=== PATIENT | male | born 1975 | race Caucasian/White ===

== ENCOUNTER 2017-01-06 17:01 | Emergency (ER) | payer OTHER ==
[2017-01-06 17:12] VITALS: BP 139/96; PULSE 77; TEMP 98.7; BMI 33.7
--- NOTE | 2017-01-06 17:22 | PDOC ---
History of Present Illness - General Exam Limitations: No Limitations <Lashonda Woodard - Last Filed: 01/06/17 17:35> - History of Present Illness Initial Comments: 01/06/17 17:31 The patient is a 41 year old male, with a significant past medical history of left elbow arthroscopy in September 2016 s/p fall in 2010 to bilateral elbows, who presents to the emergency department with progressive pain and mild swelling to his right elbow and right forearm since his left elbow surgery in September 2016 s/p mechanical fall in 2010. He reports taking Advil this morning with little to no pain relief. He also reports having an injection to his right elbow ( symptomatic elbow) shortly after his left elbow arthroscopy. He states the injection helped with his pain until about a month ago. He reports pain today that is exacerbated with extension of his right elbow. He denies numbness. He states he has called his orthopedic surgeon, Dr. Wilson at [facility], and scheduled an appointment for a later date. He denies chest pain, shortness of breath, headache and dizziness. He denies fever, chills, nausea, vomit, diarrhea and constipation. He denies dysuria, frequency, urgency and hematuria. Allergies: NKDA Past surgical history: left elbow arthroscopy (2010) <Eliza Charlton - Last Filed: 01/06/17 17:39> - General Chief Complaint: Pain Stated Complaint: RT ELBOW PAIN Past History - Past Medical History GI Disorders: Yes (ACID REFLUX) - Surgical History Orthopedic Surgery: Yes - Psycho/Social/Smoking Cessation Hx Anxiety: No Suicidal Ideation: No Smoking Status: No Smoking History: Never smoked Have you smoked in the past 12 months: No Number of Cigarettes Smoked Daily: 0 Information on smoking cessation initiated: No Hx Alcohol Use: No Drug/Substance Use Hx: No Substance Use Type: None Hx Substance Use Treatment: No <Lashonda Woodard - Last Filed: 01/06/17 17:35> <Eliza Charlton - Last Filed: 01/06/17 17:39> - Past Medical History Allergies/Adverse Reactions: Allergies Allergy/AdvReac Type Severity Reaction Status Date / Time prednisone Allergy Verified 01/06/17 17:02 Home Medications: Ambulatory Orders Ibuprofen [Motrin -] 600 mg PO TID PRN #90 tablet MDD 3 01/06/17 Omeprazole 10 mg PO DAILY 01/06/17 Review of Systems - Review of Systems Able to Perform ROS?: Yes Comments:: 01/06/17 17:32 GENERAL/CONSTITUTIONAL: No fever or chills. No weakness. HEAD, EYES, EARS, NOSE AND THROAT: No change in vision. No ear pain or discharge. No sore throat. CARDIOVASCULAR: No chest pain or shortness of breath. RESPIRATORY: No cough, wheezing, or hemoptysis. GASTROINTESTINAL: No nausea, vomiting, diarrhea or constipation. GENITOURINARY: No dysuria, frequency, or change in urination. MUSCULOSKELETAL: (+) pain and swelling to right elbow. No neck or back pain. SKIN: No rash NEUROLOGIC: No headache, vertigo, loss of consciousness, or change in strength/ sensation. ENDOCRINE: No increased thirst. No abnormal weight change. HEMATOLOGIC/LYMPHATIC: No anemia, easy bleeding, or history of blood clots. ALLERGIC/IMMUNOLOGIC: No hives or skin allergy. <Eliza Charlton - Last Filed: 01/06/17 17:39> *Physical Exam - Vital Signs Last Vital Signs Temp Pulse Resp BP Pulse Ox 98.7 F 77 20 139/96 97 01/06/17 17:02 01/06/17 17:02 01/06/17 17:02 01/06/17 17:02 01/06/17 17:02 <Lashonda Woodard - Last Filed: 01/06/17 17:35> - Vital Signs Last Vital Signs Temp Pulse Resp BP Pulse Ox 98.7 F 77 20 139/96 97 01/06/17 17:02 01/06/17 17:02 01/06/17 17:02 01/06/17 17:02 01/06/17 17:02 - Physical Exam Comments: 01/06/17 17:33 GENERAL: Awake, alert, and fully oriented, in no acute distress HEAD: No signs of trauma EYES: PERRLA, EOMI, sclera anicteric, conjunctiva clear ENT: Auricles normal inspection, hearing grossly normal, nares patent, oropharynx clear without exudates. Moist mucosa NECK: Normal ROM, supple, no lymphadenopathy, JVD, or masses LUNGS: Breath sounds equal, clear to auscultation bilaterally. No wheezes, and no crackles HEART: Regular rate and rhythm, normal S1 and S2, no murmurs, rubs or gallops ABDOMEN: Soft, nontender, normoactive bowel sounds. No guarding, no rebound. No masses EXTREMITIES: (+) Pain with supination but no effusion or erythema or warmth. Radial, median, and ulnar nerves intact. Full ROM of shoulders. Normal range of motion, no edema. No clubbing or cyanosis. No cords, erythema, or tenderness NEUROLOGICAL: Cranial nerves II through XII grossly intact. Normal speech, normal gait SKIN: Warm, Dry, normal turgor, no rashes or lesions noted. <Eliza Charlton - Last Filed: 01/06/17 17:39> Medical Decision Making - Medical Decision Making 01/06/17 17:20 41 yo M with h/o rigth arm pain prior injury many years ago. had surgery on left arm. today c/o pain right elbow. started one month ago. here today was hoping he could get an injection in his elbow. no f/c no swelling. plan ortho pedic followup. nsaids. 01/06/17 17:27 pt will follow up with Dr. France, orthopedic who performed surgery on left elbow. given rx for motrin 600mg, q8, hrs ortho followup <Lashonda Woodard - Last Filed: 01/06/17 17:35> *DC/Admit/Observation/Transfer - Discharge Dispostion Admit: No <Lashonda Woodard - Last Filed: 01/06/17 17:35> - Attestations Scribe Attestion: 01/06/17 17:33 Documentation prepared by Eliza Charlton, acting as clinical laboratory medical director for Lashonda Woodard MD <Eliza Charlton - Last Filed: 01/06/17 17:39> Diagnosis at time of Disposition: Elbow tendonitis - Prescriptions Prescriptions: Ibuprofen [Motrin -] 600 mg PO TID PRN #90 tablet MDD 3 PRN Reason: Pain - Referrals Referrals: Behzad Patel MD [Staff Physician] - - Patient Instructions Printed Discharge Instructions: DI for Lateral Epicondylitis (Tennis Elbow) Additional Instructions: you can take ibuprofen 600 mg every 8 hours as needed for pain. return for any weakness numbness or tingling. follow up wtih your orthopedics. you can also follow up with Dr. Patel ( orthopedics ) see referral for office information. call to schedule.
[2017-01-06] MEDS ORDERED: KETOROLAC TROMETHAMINE 30 MG/1 ML VIAL IM ONE (17:26)
[2017-01-06] MEDS ORDERED: KETOROLAC TROMETHAMINE 30 MG/1 ML VIAL ONE (17:52)
== END 2017-01-06 18:00 | disposition home or self-care (01) ==
LOC: FER 17:01
PROC: 3E0233Z Introduction of Anti-inflammatory into Muscle, Percutaneous Approach (ICD-10-PCS; principal; 2017-01-06)
DX: M77.9 Enthesopathy, unspecified (principal)
CPT/HCPCS: 99282-25

== ENCOUNTER 2017-05-14 18:21 | Emergency (ER) | payer BC, OTHER ==
[2017-05-14 18:28] VITALS: BP 126/86; PULSE 90; TEMP 97.8; BMI 33.0
--- NOTE | 2017-05-14 19:03 | PDOC ---
History of Present Illness - General History Source: Patient Exam Limitations: No Limitations - History of Present Illness Initial Comments: 05/14/17 20:00 The patient is a 42 year old male with past medical history of fatty liver and GERD who presents to the ED with 2 days of sore throat. He reports mild congestion as well and denies cough. States he feels warm, but denies fever. He states he has not taken anything for his symptoms. 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 Denies nausea, vomiting , diarrhea. Denies SOB or CP. Denies urinary symptoms. PAST MEDICAL HISTORY: no significant history PAST SURGICAL HISTORY: no significant history FAMILY HISTORY: no pertinent history SOCIAL HISTORY: Pt lives with family and is employed. MEDICATIONS: reviewed ALLERGIES: As per nursing notes ROS General: Present: subjective fever No chills no weakness, no weight loss HEENT: Present: sore throat No change in vision. No ear pain CardioVascular: No chest pain or shortness of breath Respiratory:No cough, or wheezing. Gastrointestinal: no nausea, vomiting, diarrhea or constipation, No rectal bleeding Genitourinary: No dysuria, hematuria, or frequency Musculoskeletal: No joint or muscle pain or swelling Neurologic: No headache, vertigo, dizziness or loss of consciousness Psychiatric: nor depression Skin: No rashes or easy bruising Endocrine: no increased thirst or abnormal weight change Allergic: no skin or latex allergy All other systems reviewed and normal GENERAL: The patient is awake, alert, and fully oriented, in no acute distress. HEAD: Normal with no signs of trauma. EYES: Pupils equal, round and reactive to light, extraocular movements intact, sclera anicteric, conjunctiva clear. THROAT: Mild erythema to posterior oropharynx. No exudates or lymphadenopathy. Tonsils are normal. EXTREMITIES: Normal range of motion, no edema. NEUROLOGICAL: Normal speech, normal gait. PSYCH: Normal mood, normal affect. SKIN: Warm, Dry, normal turgor, no rashes or lesions noted <Margarita Watkins - Last Filed: 05/14/17 20:00> - General History Source: Patient Exam Limitations: No Limitations - History of Present Illness Initial Comments: A portion of this note was documented by scribe services under my direction. I have reviewed the details of the note, within reason, and agree with the documentation. The case summary and management plan written by me. 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 Patient comes in complaining of sore throat and viral upper respiratory tract symptoms. Patient has no fever, there is no exudate there is no lymphadenopathy and no suspicion for acute strep pharyngitis. Patient was reassured that his symptoms are viral and told to take Tylenol or Motrin and was discharged <Basilia Freire I - Last Filed: 05/14/17 20:27> - General Chief Complaint: Cold Symptoms Stated Complaint: FLU LIKE SYMPTOMS Time Seen by Provider: 05/14/17 19:02 Past History <Margarita Watkins - Last Filed: 05/14/17 20:00> - Past Medical History COPD: No GI Disorders: Yes (ACID REFLUX) - Surgical History Abdominal Surgery: (HERNIA REPAIR) Orthopedic Surgery: Yes - Suicide/Smoking/Psychosocial Hx Smoking Status: No Smoking History: Never smoked Have you smoked in the past 12 months: No Number of Cigarettes Smoked Daily: 0 Hx Alcohol Use: No Drug/Substance Use Hx: No Substance Use Type: None Hx Substance Use Treatment: No <Basilia Freire I - Last Filed: 05/14/17 20:27> - Past Medical History Allergies/Adverse Reactions: Allergies Allergy/AdvReac Type Severity Reaction Status Date / Time prednisone Allergy Verified 05/14/17 18:22 Home Medications: Ambulatory Orders NK [No Known Home Medication] 05/14/17 Review of Systems - Review of Systems Able to Perform ROS?: Yes All Other Systems: Reviewed and Negative <Margarita Watkins - Last Filed: 05/14/17 20:00> *Physical Exam - Vital Signs Last Vital Signs Temp Pulse Resp BP Pulse Ox 97.8 F 90 18 126/86 96 05/14/17 18:22 05/14/17 18:22 05/14/17 18:22 05/14/17 18:22 05/14/17 18:22 <Margarita Watkins - Last Filed: 05/14/17 20:00> - Vital Signs Last Vital Signs Temp Pulse Resp BP Pulse Ox 97.8 F 90 18 126/86 96 05/14/17 18:22 05/14/17 18:22 05/14/17 18:22 05/14/17 18:22 05/14/17 18:22 <Basilia Freire I - Last Filed: 05/14/17 20:27> *DC/Admit/Observation/Transfer - Attestations Scribe Attestion: 05/14/17 20:03 Documentation prepared by Margarita Watkins, acting as bilingual medical assistant for Basilia Freire MD. <Margarita Watkins - Last Filed: 05/14/17 20:00> - Discharge Dispostion Admit: No <Basilia Freire I - Last Filed: 05/14/17 20:27> Diagnosis at time of Disposition: Viral upper respiratory illness - Discharge Dispostion Disposition: HOME Condition at time of disposition: Stable - Patient Instructions Printed Discharge Instructions: DI for Viral Upper Respiratory Infection -- Adult Additional Instructions: Tylenol or Motrin as needed every 4-6 hours for pain or fevers. Return to the emergency department immediately with ANY new, persistent or worsening symptoms. Continue any medications as previously prescribed by your physician. You should follow up with your primary doctor as soon as possible regarding today's emergency department visit. . Please make sure your doctor reviews the results of your emergency evaluation. Thank you for coming to the Emergency Department today for your care. It was a pleasure to see you today. Please note that your evaluation is INCOMPLETE until you follow-up with your doctor.
== END 2017-05-14 20:12 | disposition home or self-care (01) ==
LOC: FER 18:21
DX: J06.9 Acute upper respiratory infection, unspecified (principal); B97.89 Other viral agents as the cause of diseases classified elsewhere; K21.9 Gastro-esophageal reflux disease without esophagitis
CPT/HCPCS: 99281-25

== ENCOUNTER 2017-09-13 10:34 | Emergency (ER) | payer BC ==
[2017-09-13 10:39] VITALS: BP 122/88; PULSE 99; TEMP 98.9; BMI 33.0
[2017-09-13] MEDS ORDERED: IBUPROFEN 600 MG TABLET (FP) PO ONE ×2 (11:03→11:04)
--- NOTE | 2017-09-13 11:10 | PDOC ---
History of Present Illness - General Chief Complaint: Pain Stated Complaint: RT HAND, LEFT CALF PAIN History Source: Patient Exam Limitations: No Limitations - History of Present Illness Initial Comments: 09/13/17 11:04 42 yo male with h/o carpal tunnel here with complaints of worsening right arm pain. had done physical therapy previously, but not doing it recently. states he banged his right thumb while at work one month ago and pain has been worse since the. smilar to prior carpal tunnel. worse at night. does describe pain, throbbing and numbness. no erythem. no f/c. not wearing brace currently. pain mod. did not take anything for pain prior to arrival. also c/o left calf spasms. states has been happening for months. 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 no leg swelling. no h;/o pe or dvt. no color changes. states been trying to drink plenty of water to help but not working. notes calfs are most sore in the morning. Past History - Past Medical History Allergies/Adverse Reactions: Allergies Allergy/AdvReac Type Severity Reaction Status Date / Time prednisone Allergy Verified 09/13/17 10:35 Home Medications: Ambulatory Orders NK [No Known Home Medication] 05/14/17 COPD: No GI Disorders: Yes (ACID REFLUX) Other medical history: CARPAL TUNNEL SX - Surgical History Abdominal Surgery: Yes (HERNIA REPAIR) Orthopedic Surgery: Yes - Suicide/Smoking/Psychosocial Hx Smoking Status: No Smoking History: Never smoked Have you smoked in the past 12 months: No Number of Cigarettes Smoked Daily: 0 Hx Alcohol Use: (occasional) Drug/Substance Use Hx: No Substance Use Type: None Hx Substance Use Treatment: No Review of Systems - Review of Systems Constitutional: No: Chills, Diaphoresis, Fever HEENTM: No: Blurred Vision Respiratory: No: Orthopnea, Shortness of Breath Cardiac (ROS): No: Chest Pain, Edema Musculoskeletal: Yes: Joint Pain Integumentary: No: Bruising, Change in Color Neurological: Yes: Numbness, Other (right hand numnbess m. nerve distribution) All Other Systems: Reviewed and Negative *Physical Exam - Vital Signs Last Vital Signs Temp Pulse Resp BP Pulse Ox 98.9 F 99 H 18 122/88 97 09/13/17 10:35 09/13/17 10:35 09/13/17 10:35 09/13/17 10:35 09/13/17 10:35 - Physical Exam General Appearance: Yes: Appropriately Dressed Respiratory/Chest: positive: Lungs Clear, Normal Breath Sounds Cardiovascular: positive: Regular Rhythm, Regular Rate, S1, S2 Gastrointestinal/Abdominal: positive: Flat, Soft. negative: Tender Extremity: positive: Other (left calf soft, no calf tenderness. no edema or swelling. knee fROM. ankle FROM. right hand no visible erythem or edema. 2 + rad / uln pulses. sensation intact. ) Integumentary: positive: Normal Color, Dry, Warm Neurologic: positive: Fully Oriented, Alert, Normal Mood/Affect, Motor Strength 09/05 ED Treatment Course - RADIOLOGY Radiology Studies Ordered: Category Date Time Status HAND- RIGHT [RAD] Stat Radiology 09/13/17 11:04 Ordered Medical Decision Making - Medical Decision Making 09/13/17 11:09 pt with sxs of carpal tunnel. recommend brace motrin and fu with hand. xray due to recent injury r/o bony injury. muscle spasm. recommend hydration motrin stretching and electrolyte replacement. 09/13/17 11:49 xray neg dc home *DC/Admit/Observation/Transfer Diagnosis at time of Disposition: Carpal tunnel syndrome of right wrist, Muscle spasm - Discharge Dispostion Condition at time of disposition: Stable - Referrals Referrals: Drew Hanley MD [Primary Care Provider] - Antonio Pitt MD [Staff Physician] - - Patient Instructions Printed Discharge Instructions: Nocturnal Leg Cramps, Carpal Tunnel Syndrome Additional Instructions: you should wear your wrist splint including during the night. take ibuprofen 400 mg with food every 8 hrs only as needed for pain. you should stay hydrated. stretch before bed time of your calves. follow up with dR. Pitt see referral information and call to schedule for your carpal tunnel. - Post Discharge Activity
== END 2017-09-13 11:58 | disposition home or self-care (01) ==
LOC: FER 10:34
DX: M62.838 Other muscle spasm (principal); G56.01 Carpal tunnel syndrome, right upper limb
CPT/HCPCS: 73130-TC-RT-FY; 99283-25

== ENCOUNTER 2017-11-14 05:37 | Emergency (ER) | payer BC ==
[2017-11-14] MEDS ORDERED: KETOROLAC TROMETHAMINE 30 MG/1 ML VIAL IM ONE (05:45)
[2017-11-14] MEDS ORDERED: METHOCARBAMOL 500 MG TABLET PO ONE (05:45)
[2017-11-14 05:49] VITALS: BP 108/76; PULSE 93; BMI 33.0
[2017-11-14] MEDS ORDERED: METHOCARBAMOL 500 MG TABLET ONE (05:51)
[2017-11-14] MEDS ORDERED: KETOROLAC TROMETHAMINE 30 MG/1 ML VIAL ONE (05:51)
--- NOTE | 2017-11-14 05:51 | PDOC ---
History of Present Illness - General Stated Complaint: BACK PAIN Time Seen by Provider: 11/14/17 05:42 History Source: Patient Exam Limitations: No Limitations - History of Present Illness Initial Comments: 11/14/17 05:45 CHIEF COMPLAINT: Lower back pain after moving heavy equipment HISTORY OF PRESENT ILLNESS: This is a 42-year-old male without significant past medical history presents to the emergency department with left lower back pain radiating down the back of his left leg. Patient states he was moving heavy equipment at his job as night when he felt pain. He denies any incontinence of bladder or bowel, urinary retention, saddle anesthesia or foot drop. REVIEW OF SYSTEMS: GENERAL: Afebrile, denies any weakness RESPIRATORY: No cough, wheezing, or hemoptysis. CARDIAC: No chest pain or shortness of breath MUSCULOSKELETAL: Pain to left lower back. No point tenderness. SKIN : No erythema, no bruising, no deformity. GI/: Denies any abdominal pain, no urinary difficulty, incontinence or urinary retention. RECTAL: Denies any difficulty this A.m. NEUROLOGICAL: Denies any numbness or tingling. No neurosensory deficits. PHYSICAL EXAM: GENERAL: The patient is awake, alert, and fully oriented, in no acute distress. RESPIRATORY: Lungs clear bilaterally, no rhonchi wheezes or crackles CARDIAC: S1-S2 audible, no murmur rub or gallop MUSCULOSKELETAL: Pain to left lower back, nonradiating, no tingling or sensory deficit. Less than 2 second cap refill, +2 pedal pulses. GI/: Abdomen soft, nontender, nondistended. No rebound tenderness. No masses palpable. MUSCULOSKELETAL: No spinal point tenderness. Normal reflexive and no deficits to sensation or strength. RECTAL: Deferred patient with no neurological findings SKIN: Warm, Dry, normal turgor, no erythema, no edema no bruising. Past History - Past Medical History Allergies/Adverse Reactions: Allergies Allergy/AdvReac Type Severity Reaction Status Date / Time prednisone Allergy Verified 11/14/17 05:45 Home Medications: Ambulatory Orders Omeprazole 20 mg PO DAILY PRN 11/14/17 COPD: No GI Disorders: Yes (ACID REFLUX) - Surgical History Abdominal Surgery: Yes (HERNIA REPAIR) Orthopedic Surgery: Yes - Suicide/Smoking/Psychosocial Hx Smoking Status: No Smoking History: Never smoked Have you smoked in the past 12 months: No Number of Cigarettes Smoked Daily: 0 Hx Alcohol Use: (occasional) Drug/Substance Use Hx: No Substance Use Type: None Hx Substance Use Treatment: No Medical Decision Making - Medical Decision Making 11/14/17 05:46 A/P: 42-year-old male with left lower back pain radiating down his left leg status post heavy lifting exudate No palpable muscle spasms Full sensation noted to bilateral lower extremities Able form straight leg raises without difficulty No neurologic deficits Toradol 30 mg IM now Robaxin 1 g orally now Reassess 11/14/17 06:33 Pain is starting to improve after receiving medications. I will discharge the patient home to follow-up with his primary doctor. *DC/Admit/Observation/Transfer Diagnosis at time of Disposition: Low back pain Qualifiers: Chronicity: acute Back pain laterality: left Sciatica presence: with sciatica Sciatica laterality: sciatica of left side Qualified Code(s): M54.42 - Lumbago with sciatica, left side - Discharge Dispostion Disposition: HOME Condition at time of disposition: Fair Decision to Admit order: No - Referrals Referrals: Drew Hanley MD [Primary Care Provider] - - Patient Instructions Additional Instructions: Take Aleve as needed for pain. Follow manufacturers instructions for appropriate dosage. Warm moist heat applied to your back may help alleviate pain. Return to emergency department for worsening pain or any other concerns. Thank you very much for choosing us to provide your emergent healthcare needs. - Post Discharge Activity Forms/Work/School Notes: Back to Work
--- NOTE | 2017-11-14 05:56 | PDOC ---
*Physical Exam - Vital Signs Last Vital Signs Temp Pulse Resp BP Pulse Ox 93 H 18 108/76 99 11/14/17 05:46 11/14/17 05:46 11/14/17 05:46 11/14/17 05:46 ED Treatment Course - Medications Given in the ED: ED Medications Discontinued Medications Generic Name Dose Route Start Last Admin Trade Name Araseli PRN Reason Stop Dose Admin Ketorolac Tromethamine 30 mg 11/14/17 05:45 11/14/17 05:55 Toradol Injection - IM 11/14/17 05:46 30 mg ONCE ONE Administration Methocarbamol 1,000 mg 11/14/17 05:45 11/14/17 05:55 Robaxin - PO 11/14/17 05:46 1,000 mg ONCE ONE Administration Medical Decision Making - Medical Decision Making 11/14/17 05:56 Pt seen by Midlevel Provider under my direct supervision I agree with plan as outlined by Midlevel Provider *DC/Admit/Observation/Transfer Diagnosis at time of Disposition: Low back pain Qualifiers: Chronicity: acute Back pain laterality: left Sciatica presence: with sciatica Sciatica laterality: sciatica of left side Qualified Code(s): M54.42 - Lumbago with sciatica, left side - Discharge Dispostion Disposition: HOME Condition at time of disposition: Fair - Referrals Referrals: Drew Hanley MD [Primary Care Provider] - - Patient Instructions Printed Discharge Instructions: DI for Low Back Pain Additional Instructions: Take Aleve as needed for pain. Follow manufacturers instructions for appropriate dosage. Warm moist heat applied to your back may help alleviate pain. Return to emergency department for worsening pain or any other concerns. Thank you very much for choosing us to provide your emergent healthcare needs. - Post Discharge Activity Forms/Work/School Notes: Back to Work
== END 2017-11-14 06:47 | disposition home or self-care (01) ==
LOC: JER 05:37
PROC: 3E0233Z Introduction of Anti-inflammatory into Muscle, Percutaneous Approach (ICD-10-PCS; principal; 2017-11-14)
DX: M54.42 Lumbago with sciatica, left side (principal); X50.0XXA Overexertion from strenuous movement or load, initial encounter; Y93.89 Activity, other specified; Y92.238 Other place in hospital as the place of occurrence of the external cause; Y99.0 Civilian activity done for income or pay
CPT/HCPCS: 99281-25

== ENCOUNTER 2018-07-04 17:14 | Emergency (ER) | payer BC, OTHER ==
[2018-07-04 17:29] VITALS: BP 135/95; PULSE 100; TEMP 97.3; BMI 34.4
--- NOTE | 2018-07-04 17:48 | PDOC ---
History of Present Illness - General Chief Complaint: Headache Stated Complaint: HEADACHE Time Seen by Provider: 07/04/18 17:25 - History of Present Illness Initial Comments: 07/04/18 17:55 Chief complaint: "I think I have a sinus infection" History of present illness: URI symptoms, headache intermittent for 2 weeks. Taking DayQuil without significant relief. Did not see his doctor. History of sinus infections Review of systems: Subjective fever or chills but did not take his temperature. No sore throat or earache. No cough. No visual or focal neurologic symptoms, unsteadiness of gait. No chest pain, shortness of breath, abdominal pain, nausea , vomiting, diarrhea, visual or focal neurologic symptoms, unsteadiness of gait Past medical history: Patient is healthy, no active medical or surgical problems. Has been working and performing his usual activities without disruption Social history: Denies tobacco alcohol or nonprescription drugs. Fully active and without disability Family history: Reviewed and noncontributory including early coronary artery disease, respiratory diseases, metabolic disease including diabetes, and cancer Physical exam: Alert and oriented well-developed well-nourished no acute distress cheerful and cooperative. There is no respiratory distress and the patient does not appear to be in significant distress due to headache Afebrile, vital signs normal PERRLA 4 mm, fundi benign with sharp disc margins and good central venous pulsations. Mild nasal congestion. Ears and throat clear Neck supple without bruit mass or nodes Chest clear with full breath sounds throughout bilaterally. No wheezes rales or rhonchi CV S1 and S2 normal without murmur rub or gallop pulses full and symmetric no JVD or edema no bruits Abdomen benign Neurological C2 to 12 intact. Strength full and symmetric. No focal sensory or motor deficits. Gait stable and unimpaired. Cerebellum intact Skin clear, no rash, adequate turgor and wet mucous membranes Extremities no CCE Impression: Because of the duration of the illness, possible sinusitis, though symptoms are mild. Headache may be due to to sinus congestion. No sign of significant neurological disease or impairment. Plan: Decongestant, antibiotic, and Motrin. Rest and fluids. Recheck 2-3 days if symptoms persist. His symptoms worsen, return to ER. Fully ambulatory and in no significant distress at discharge. Past History - Past Medical History Allergies/Adverse Reactions: Allergies Allergy/AdvReac Type Severity Reaction Status Date / Time prednisone Allergy Verified 12/23/17 22:15 Home Medications: Ambulatory Orders Amoxicillin - [Amoxicillin 500mg Capsule -] 500 mg PO TID #21 capsule 07/04/18 Fexofenadine/Pseudoephedrine [Kacey-D 24 Hour Tablet] 1 each PO DAILY #10 tab.er.24h 07/04/18 Ibuprofen 800 mg PO TID PRN #15 tablet 07/04/18 COPD: No GI Disorders: Yes (ACID REFLUX) - Surgical History Abdominal Surgery: Yes (HERNIA REPAIR) Orthopedic Surgery: Yes - Suicide/Smoking/Psychosocial Hx Smoking Status: No Smoking History: Never smoked Have you smoked in the past 12 months: No Number of Cigarettes Smoked Daily: 0 Information on smoking cessation initiated: No Hx Alcohol Use: No Drug/Substance Use Hx: No Substance Use Type: None Hx Substance Use Treatment: No *Physical Exam - Vital Signs Last Vital Signs Temp Pulse Resp BP Pulse Ox 97.3 F L 100 H 20 135/95 99 07/04/18 17:14 07/04/18 17:14 07/04/18 17:14 07/04/18 17:14 07/04/18 17:14 Moderate Sedation - Procedure Monitoring Vital Signs: Procedure Monitoring Vital Signs Temperature 97.3 F L 07/04/18 17:14 Pulse Rate 100 H 07/04/18 17:14 Respiratory Rate 20 07/04/18 17:14 Blood Pressure 135/95 07/04/18 17:14 O2 Sat by Pulse Oximetry (%) 99 07/04/18 17:14 *DC/Admit/Observation/Transfer Diagnosis at time of Disposition: Viral URI - Discharge Dispostion Disposition: HOME Condition at time of disposition: Stable Decision to Admit order: No - Prescriptions Prescriptions: Amoxicillin - [Amoxicillin 500mg Capsule -] 500 mg PO TID #21 capsule Fexofenadine/Pseudoephedrine [Kacey-D 24 Hour Tablet] 1 each PO DAILY #10 tab.er.24h Ibuprofen 800 mg PO TID PRN #15 tablet PRN Reason: Headache - Referrals - Patient Instructions Printed Discharge Instructions: DI for Viral Upper Respiratory Infection -- Adult - Post Discharge Activity Forms/Work/School Notes: Back to Work
== END 2018-07-04 18:06 | disposition home or self-care (01) ==
LOC: FER 17:14
DX: J06.9 Acute upper respiratory infection, unspecified (principal); K21.9 Gastro-esophageal reflux disease without esophagitis
CPT/HCPCS: 99281-25

== ENCOUNTER 2020-04-18 19:47 | Emergency (ER) | payer OTHER ==
[2020-04-18 19:58] VITALS: BP 144/95; PULSE 106; TEMP 98.6; BMI 33.0
[2020-04-18] MEDS ORDERED: KETOROLAC TROMETHAMINE 60 MG/2 ML VIAL IM ONE (20:06)
[2020-04-18] MEDS ORDERED: CYCLOBENZAPRINE HCL 10 MG TABLET (FP) PO ONE (20:06)
[2020-04-18] MEDS ORDERED: KETOROLAC TROMETHAMINE 60 MG/2 ML VIAL ONE (20:31)
[2020-04-18] MEDS ORDERED: CYCLOBENZAPRINE HCL 10 MG TABLET (FP) ONE (20:31)
== END 2020-04-18 20:40 | disposition home or self-care (01) ==
LOC: JERFT 19:47
PROC: 3E0233Z Introduction of Anti-inflammatory into Muscle, Percutaneous Approach (ICD-10-PCS; principal; 2020-04-18)
DX: M54.5 Low back pain (principal); Z04.1 Encounter for examination and observation following transport accident
CPT/HCPCS: 73030-TC-LT-FY; 99284-25

== ENCOUNTER 2020-05-19 14:11 | Emergency (ER) | payer OTHER | END 2020-05-19 15:20 | disposition home or self-care (01) | LOC: JVIRT 14:11 | DX: Z11.52 Encounter for screening for COVID-19 (principal) | CPT/HCPCS: C9803; G2012-GT; U0003 ==

== ENCOUNTER 2020-05-29 11:36 | Emergency (ER) | payer OTHER | END 2020-05-29 12:46 | disposition home or self-care (01) | LOC: JVIRT 11:36 | DX: Z20.822 Contact with and (suspected) exposure to COVID-19 (principal) | CPT/HCPCS: C9803; G2012-GT; U0003 ==

== ENCOUNTER 2021-05-25 20:56 | Emergency (ER) | payer OTHER ==
[2021-05-25 21:25] VITALS: BP 130/82; PULSE 88; TEMP 97.8; BMI 33.0
== END 2021-05-25 23:01 | disposition home or self-care (01) ==
LOC: JER 20:56
DX: U07.1 COVID-19 (principal)
CPT/HCPCS: 99283-25; C9803; U0003; U0005

== ENCOUNTER 2021-10-06 09:15 | Emergency (ER) | payer OTHER ==
[2021-10-06 09:22] VITALS: BP 115/65; PULSE 83; TEMP 98; BMI 33.7
== END 2021-10-06 10:20 | disposition home or self-care (01) ==
LOC: JERFT 09:15
DX: S93.401A Sprain of unspecified ligament of right ankle, initial encounter (principal); X50.0XXA Overexertion from strenuous movement or load, initial encounter; Y93.68 Activity, volleyball (beach) (court)
CPT/HCPCS: 73610-TC-RT-FY; 73630-TC-RT-FY; 99284-25

== ENCOUNTER 2023-01-12 07:09 | Day surgery (SDC) | payer OTHER ==
[2023-01-06 12:28] VITALS: BMI 33.7
[2023-01-12] MEDS ORDERED: PROPOFOL 40 ML ONE (07:45)
[2023-01-12] MEDS ORDERED: MIDAZOLAM HCL 2 MG/2 ML SINGLE DOSE VIAL ONE (07:45)
[2023-01-12] MEDS ORDERED: BUPIVACAINE HCL/EPINEPHRINE/PF 30 ML VIAL IJ ONE (08:41)
[2023-01-12] MEDS ORDERED: ceFAZolin SODIUM 1 GM VIAL ONE (09:43)
[2023-01-12] MEDS ORDERED: DEXAMETHASONE SOD PHOSPHATE 4 MG/1 ML VIAL ONE (09:48)
[2023-01-12] MEDS ORDERED: ONDANSETRON 4 MG/2 ML VIAL ONE (09:48)
[2023-01-12] MEDS ORDERED: BUPIVACAINE 0.25% /EPI 1:200,000 10 ML VIAL NR ONE (09:54)
[2023-01-12] MEDS ORDERED: KETOROLAC TROMETHAMINE 30 MG/1 ML VIAL ONE (10:11)
[2023-01-12] MEDS ORDERED: oxyCODONE HCL 5 MG TABLET PO PRN (10:19)
[2023-01-12] MEDS ORDERED: ONDANSETRON 4 MG/2 ML VIAL IVPUSH PRN (10:19)
[2023-01-12] MEDS ORDERED: LACTATED RINGERS SOLUTION 1,000 ML IV SCH (10:30)
[2023-01-12 13:26] VITALS: TEMP 97.8
[2023-01-12 15:25] VITALS: BP 140/82; PULSE 81; RESP 17
== END 2023-01-12 11:40 | disposition home or self-care (01) ==
LOC: FASU 07:09
PROVIDERS: ATTEND Orthopaedic Surgery
PROC: 0SQC4ZZ Repair Right Knee Joint, Percutaneous Endoscopic Approach (ICD-10-PCS; principal; 2023-01-12 09:15)
DX: S83.231A Complex tear of medial meniscus, current injury, right knee, initial encounter (principal); X58.XXXA Exposure to other specified factors, initial encounter; Y93.9 Activity, unspecified; Y92.9 Unspecified place or not applicable
CPT/HCPCS: 94760; C1713

== ENCOUNTER 2023-04-28 20:05 | Emergency (ER) | payer OTHER ==
[2023-04-28 20:25] VITALS: BP 138/89; PULSE 86; RESP 16; TEMP 97.7; BMI 33.7
== END 2023-04-28 21:21 | disposition home or self-care (01) ==
LOC: FER 20:05
DX: R51.9 Headache, unspecified (principal); R11.0 Nausea; R42 Dizziness and giddiness; B34.9 Viral infection, unspecified; Z20.822 Contact with and (suspected) exposure to COVID-19
CPT/HCPCS: 0241U-QW; 99283-25

== ENCOUNTER 2024-05-08 08:45 | Emergency (ER) | payer OTHER ==
[2024-05-08 08:58] VITALS: BP 135/94; PULSE 88; RESP 18; TEMP 97.5; BMI 32.5
== END 2024-05-08 09:17 | disposition home or self-care (01) ==
LOC: FER 08:45
DX: L25.9 Unspecified contact dermatitis, unspecified cause (principal); R21 Rash and other nonspecific skin eruption; Z20.822 Contact with and (suspected) exposure to COVID-19
CPT/HCPCS: 0241U-QW; 99283-25